=== PATIENT | female | born 1980 | race African-American/Black ===

== ENCOUNTER 2016-11-26 21:23 | Emergency (ER) | payer OTHER ==
[~2016-11-26] VITALS: Ht 171.4 cm; Wt 85.0 kg
[~2016-11-26 21:23] MED LIST: LEVE500S9 PO; PERA2TAB PO; PHEN100C PO
[2016-11-26 21:27] VITALS: Ht 171.4 cm; Wt 85.0 kg
[2016-11-26] MEDS ORDERED: SOD CHLORIDE 0.9% 1,000 ML IV STA (21:31)
[2016-11-26] MEDS ORDERED: LORAZEPAM 2 MG INJ IV STA (21:31)
[2016-11-26] MEDS ORDERED: LEVETIRACETAM 1000 MG (PMX) 100 ML IVPB STA (21:31)
[2016-11-26] MEDS ORDERED: morphine 4 MG/ML VIAL IV STA ×2 (21:38→23:59)
[2016-11-26] MEDS ORDERED: ONDANSETRON 4 MG INJ IV STA (21:38)
--- NOTE | 2016-11-26 21:38 | ERA ---
ER Documentation Chief Complaint Date/Time DATE: 11/26/16 TIME: 21:36 Chief Complaint vicky X3 started at 2108,c/o QUEVEDO, sharp & pressure CP radiating to L arm HPI This is a 36-year-old -[place] female with a known history of seizure disorder currently taking both Keppra and Depakote. The patient indicates that over the past 24 hours she has had 3 tonic-clonic witnessed seizures. The first 1 occurred 10 hours prior to arrival. This lasted for roughly 10 seconds. 2 hours later she had another seizure but did return to her baseline mental status. The second seizure lasted for roughly 5 minutes. Just prior to arrival while the patient was walking her friend stated she had a tonic-clonic seizure that lasted for roughly 10 minutes. The patient states she has a mild headache but did not hit her head or fall is her friend was able to catch her during her seizure activity. She states the headache is a bandlike headache, 6 out of 10 in intensity. Contrary to the triage note the patient is denying any chest pain or pressure that radiates to the neck arm back or jaw. She indicates several days ago she was at [facility] for chest discomfort and discharged home. She indicated a IV was placed in the left antecubital region and she is complaining of mild pain around the IV site but denies any fever shaking or chills. The patient indicates she has been complete with her antiepileptic medication. She has no shortness of breath at rest or exertion peer ROS All systems reviewed and are negative except as per history of present illness. Medications Home Meds Reported Medications Perampanel (Fycompa) 4 Mg Tablet, 4 MG PO HS, TAB 11/26/16 Levetiracetam* (Levetiracetam*) 500 Mg Tablet, 500 MG PO BID, TAB 11/26/16 Phenytoin* Sodium Extended (Dilantin*) 100 Mg Capsule, 100 MG PO FIVE TIMES PER DAY, 0 Refills 04/12/10 Discontinued Reported Medications Perampanel (Fycompa) 2 Mg Tablet, 2 MG PO HS, TAB 07/10/16 Levetiracetam* (Keppra*) 500 Mg/5 Ml Solution, 500 MG PO QAM, BOTTLE 07/10/16 Allergies Allergies: Coded Allergies: No Known Allergies (Verified Allergy, Mild, 07/10/16) PMhx/Soc History of Surgery: Yes (d and c) Anesthesia Reaction: No Hx Neurological Disorder: Yes (pt has hx of seizures) Hx Respiratory Disorders: No Hx Cardiac Disorders: No Hx Psychiatric Problems: No Hx Miscellaneous Medical Probl: No Hx Alcohol Use: No Hx Substance Use: No Hx Tobacco Use: No Physical Exam Vitals Vital Signs Date Time Temp Pulse Resp B/P Pulse Ox O2 Delivery O2 Flow Rate FiO2 11/26/16 21:41 97 15 153/98 100 Room Air 11/26/16 21:27 98.5 97 18 182/109 100 Physical Exam Constitutional:Well-developed. Well-nourished. HEENT:Normocephalic. Atraumatic.Pupils were equal round reactive to light. Moist mucous membranes.No tonsillar exudates. No nasoseptal hematoma. No hemotympanum. Funduscopy exam showed sharp optic disc bilaterally venous pulsations are prepped Neck: No nuchal rigidity. No lymphadenopathy. No posterior cervical spine tenderness or step-offs. Respiratory: Not using accessory muscles of respiration.Lungs were clear to auscultation bilaterally. No rhonchi. No rales. No wheezing. Cardiovascular: Regular rate regular rhythm.No murmurs. No rubs were appreciated.S1, S2 normal. Distal pulses are palpable 2+ bilaterally. Reproducible bilateral chest wall tenderness with no crepitus no ecchymosis no flail chest GI: Abdomen was soft. Nontender. Non Distended. No pulsatile abdominal masses or bruits. No rebound. No guarding. Bowel sounds were present and normal. Muscle skeletal: Full range of motion of both the upper and lower extremities bilaterally.Normal muscle tone.No assymetrical calf tenderness or swelling. Compartments were soft of the bilateral upper extremities Skin: No petechia, no purpura. No lesions on the palms or the soles of the feet. No maculopapular rash. Neurasthenia redness tenderness or swelling of the left antecubital region. NEURO: Patient was alert, awake, orientated x3.No facial droop. Gait observed and normal with no ataxia.Speech had regular rate and rhythm. No focal neurological deficits. Patient was not postictal Results 24 hrs Current Medications Medications (Trade) Dose Ordered Sig/Daryl Route PRN Reason Start Time Stop Time Status Last Admin Dose Admin Sodium Chloride (NS) 1,000 ml @ 1,000 mls/hr Q1H STAT IV 11/26/16 21:31 11/26/16 22:30 Lorazepam 1 mg 1 mg ONCE STAT IV 11/26/16 21:31 11/26/16 21:34 DC Levetiracetam (Keppra 1,000mg/ 100ml (Pmx)) 100 ml @ 400 mls/hr ONCE STAT IVPB 11/26/16 21:31 11/26/16 21:45 DC Morphine Sulfate (morphine) 4 mg ONCE STAT IV 11/26/16 21:38 11/26/16 21:40 DC Ondansetron HCl (Zofran Inj) 4 mg ONCE STAT IV 11/26/16 21:38 11/26/16 21:40 DC Procedures/MDM This patient presented to the emergency department with physical exam findings suggestive of a breakthrough seizure. The patient had seizure precautions maintained while in the emergency department was placed on ekg monitor continuous pulse oximetry and IV access was established by nursing staff. There is no electrolyte abnormalities. I did obtain a CT scan of the head which showed no acute intracerebral hemorrhage mass-effect or midline shift. The patient received intravenous Keppra and Dilantin in the emergency department. Her Dilantin level was subtherapeutic. 12 Lead EKG tracing ordered and reviewed by myself showed: Normal sinus rhythm of 88 bpm and no arrhythmia. MI interval normal. QRS duration normal. No ST segment elevation No ST segment depression. No changes consistent with acute ischemia. The patient presented to the emergency department complaining of chest pain occurred several days prior to arrival had also been evaluated at [facility]. My clinical evaluation and workup was to distinguish minor causes of chest pain from acute life threatening cardiopulmonary causes such as myocardial infarction, pulmonary embolism, aortic dissection, esophageal rupture , cardiac tamponade, The patients chest pain was reproduced by palpation and horizontal flexion of the arms. It was my clinical impression that the pain was a result of inflammation of the skin and subcutaneous structures of the chest wall versus myocardial ischemia. I felt the patient had low-risk chest pain and could therefore be safely discharged with close follow-up. Patient did receive intravenous morphine and Zofran for analgesic control. Departure Diagnosis: Primary Impression: Seizure disorder Condition: HAJA Lomeli Nov 26, 2016 21:38
[2016-11-26] MEDS ORDERED: LEVE500T8 PO (22:07)
[2016-11-26] MEDS ORDERED: PERA4TAB PO (22:08)
[2016-11-26 22:11] LABS: ADD SCAN DIFF NO
[2016-11-26 22:14] LABS: ABNORMAL IP MESSAGE 1; BASOPHILS % 0.4 % (0.0-2.0); EOSINOPHILS # 0.1 10^3/ul (0.0-0.5); EOSINOPHILS % 1.4 % (0.0-7.0); HEMATOCRIT 30.5 % (37.0-47.0); HEMOGLOBIN 8.8 g/dl (12.0-16.0); LYMPHOCYTES # 1.6 10^3/ul (0.8-2.9); LYMPHOCYTES % 22.5 % (15.0-51.0); MEAN CORPUSCULAR HEMOGLOBIN 19.5 pg (29.0-33.0); MEAN CORPUSCULAR HGB CONC 28.9 g/dl (32.0-37.0); MEAN CORPUSCULAR VOLUME 67.6 fl (82.0-101.0); MONOCYTE # 0.8 10^3/ul (0.3-0.9); MONOCYTES % 11.7 % (0.0-11.0); NEUTROPHIL # 4.5 10^3/ul (1.6-7.5); NEUTROPHILS % 63.6 % (39.0-77.0); PLATELET COUNT 271 10^3/UL (140-415); RED BLOOD COUNT 4.51 10^6/ul (4.20-5.40); RED CELL DISTRIBUTION WIDTH 20.7 % (11.5-14.5); WHITE BLOOD COUNT 7.2 10^3/ul (4.8-10.8)
[2016-11-26 22:26] LABS: INR 1.11; PROTIME 14.3 Sec (12.2-14.2); PT RATIO 1.1
[2016-11-26 22:27] LABS: PARTIAL THROMBOPLASTIN TIME 24.3 Sec (25.0-35.0)
[2016-11-26 22:34] LABS: ALBUMIN 4.3 g/dl (3.3-4.9); CHLORIDE 105 mmol/L (97-110)
[2016-11-26 22:35] LABS: POTASSIUM 3.9 mmol/L (3.5-5.1); SODIUM 141 mmol/L (135-144)
[2016-11-26 22:37] LABS: ALBUMIN/GLOBULIN RATIO 1.07; ALKALINE PHOSPHATASE 117 IU/L (42-121); ANION GAP 15 (8-16); ASPARTATE AMINO TRANSFERASE 39 IU/L (15-46); CARBON DIOXIDE 25 mmol/L (21-31); CREATININE 0.61 mg/dl (0.44-1.00); TOTAL PROTEIN 8.3 g/dl (6.1-8.1)
[2016-11-26 22:38] LABS: ALANINE AMINOTRANSFERASE 50 IU/L (13-69); BLOOD UREA NITROGEN 7 mg/dl (7-20); CALCIUM 9.1 mg/dl (8.4-10.2); GLUCOSE 99 mg/dl (70-220)
[2016-11-26 22:39] LABS: ETHANOL < 10.0 mg/dl
--- NOTE | 2016-11-26 22:51 | RADRPT ---
PROCEDURE: CT brain without contrast CLINICAL INDICATION: Headaches after seizure and fall TECHNIQUE: A CT of the brain was performed utilizing axial sections from the skull base through th e vertex without contrast. Sagittal and coronal images were also reformatted. The exam CTDIvol = 69. 20 mGy and DLP = 768.60 mGy-cm. COMPARISON: CT 03/03/2014 FINDINGS: No acute intracranial hemorrhage is identified. There is no mass effect or midline shift. No extra -axial fluid collection is seen. The ventricles and sulci are within normal limits for size and con figuration. The density of the brain is within normal limits. Kelly-white differentiation is preser asif. The osseous structures are unremarkable. The mastoid air cells and visualized paranasal sinuses are clear. RPTAT:HJJR IMPRESSION: Unremarkable noncontrast CT of the brain. Physician Helen Date Time Electronically viewed and signed by Physician Helen on 11/26/2016 22:50 /
[2016-11-26 23:00] LABS: TROPONIN-I < 0.012 ng/ml (0.00-0.12)
[2016-11-26 23:10] LABS: BARBITURATES Negative (NEGATIVE); BENZODIAZEPINES Negative (NEGATIVE); CANNABINOIDS Negative (NEGATIVE); COCAINE Negative (NEGATIVE); OPIATES Negative (NEGATIVE)
[2016-11-26 23:36] LABS: ADD UMIC NO; URINE BILIRUBIN (Dip) NEGATIVE (NEGATIVE); URINE BLOOD (Dip) NEGATIVE (NEGATIVE); URINE COLOR LT. YELLOW (YELLOW); URINE GLUCOSE (Dip) NEGATIVE (NEGATIVE); URINE KETONES (Dip) NEGATIVE (NEGATIVE); URINE LEUKOCYTE ESTERASE (Dip) NEGATIVE (NEGATIVE); URINE NITRITE (Dip) NEGATIVE (NEGATIVE); URINE TOTAL PROTEIN (Dip) NEGATIVE (NEGATIVE); URINE UROBILINOGEN (Dip) 0.2 E.U./dL (0.1-1.0)
[2016-11-27 00:21] VITALS: BP 153/99; PULSE 95; RESP 16; TEMP 98.7
== END 2016-11-27 00:23 | disposition home or self-care (01) ==
LOC: E/R 21:23
DX: G40.909 Epilepsy, unspecified, not intractable, without status epilepticus (principal); R40.2252 Coma scale, best verbal response, oriented, at arrival to emergency department; R51 Headache; R07.9 Chest pain, unspecified; R40.2142 Coma scale, eyes open, spontaneous, at arrival to emergency department; R40.2362 Coma scale, best motor response, obeys commands, at arrival to emergency department
CPT/HCPCS: 70450; 80053; 80185; 80306; 80307; 81003; 84484; 84703; 85025; 85610; 85730; 93005; J1953; J2060; J2270; J2405; J7030; 36415; 96374; 96375; 96376

== ENCOUNTER 2018-11-10 08:43 | Day surgery (SDC) | payer OTHER ==
[~2018-11-10] VITALS: Ht 171.4 cm; Wt 83.7 kg
[~2018-11-10 08:43] MED LIST changes: -LEVE500S9 PO; +LEVE500T8 PO; -PERA2TAB PO; +PERA4TAB PO
[2018-11-10 10:47] VITALS: Ht 171.4 cm; Wt 83.7 kg
[2018-11-10] MEDS ORDERED: FERROUS SULFATE (10:53)
--- NOTE | 2018-11-10 11:18 | PREAC ---
Date/Time of Note Date/Time of Note DATE: 11/10/18 TIME: 11:17 Anesthesia Eval and Record Evaluation Time Pre-Procedure Interview DATE: 11/10/18 TIME: 11:17 Age 38 Sex female NPO: 8 hrs Preoperative diagnosis anemia Planned procedure egd, colonoscopy Past Medical History Past Medical History: Includes Cardio: Dyslipidemia Neuro: Seizure disorder GI: GERD Heme: Anemia Surgery & Anesthesia Issues No known issue Meds Anticoagulation: No Beta Beverly within 24 hr: No Reason Beta Beverly not given: Pt. not on B-Beverly Reported Medications [Ferrous Sulfate] No Conflict Check 11/10/18 Perampanel (Fycompa) 4 Mg Tablet, 4 MG PO HS, TAB 11/26/16 Levetiracetam* (Levetiracetam*) 500 Mg Tablet, 500 MG PO BID, TAB 11/26/16 Phenytoin* Sodium Extended (Dilantin*) 100 Mg Capsule, 100 MG PO FIVE TIMES PER DAY, 0 Refills 04/12/10 Meds reviewed: Yes Allergies Coded Allergies: No Known Allergies (Verified Allergy, Mild, 07/10/16) Allergies Reviewed: Yes Labs/Studies Labs Reviewed: Reviewed by anesthesiologist test: Negative Pre-procedure Exam Airway: Adequate mouth opening, Adequate thyromental dist Mallampati: Mallampati II Teeth: Normal Lung: Normal Heart: Normal ASA Physical Status ASA physical status: 3 Emergency: None Planned Anesthetic General/MAC: Mask, MAC Pre-operative Attestations Prior to commencing anesthesia and surgery, the patient was re-evaluated, there was verification of: *The patient's identity *The results of appropriate recent lab work and preoperative vital signs *The above evaluation not changing prior to induction *Anesthetic plan, risk benefits, alternative and complications discussed with patient/family; questions answered; patient/family understands, accepts and wishes to proceed. BRANDI PASTRANA Nov 10, 2018 11:18
--- NOTE | 2018-11-10 11:20 | HPN ---
Date/Time of Note Date/Time of Note DATE: 11/10/18 TIME: 11:20 Interval H&P Admission Note Pt. seen H&P reviewed: No system changes PASCUAL OSPINA Nov 10, 2018 11:20
[2018-11-10] MEDS ORDERED: PROPOFOL 40 ML ONE (11:29)
[2018-11-10 11:59] VITALS: BP 141/84; PULSE 69; RESP 18
--- NOTE | 2018-11-10 13:36 | PAC ---
Date/Time of Note Date/Time of Note DATE: 11/10/18 TIME: 13:36 Post-Anesthesia Notes Post-Anesthesia Note Last documented vital signs Vital Signs Date Temp Pulse Resp B/P (MAP) Pulse Ox O2 O2 Flow FiO2 Time Delivery Rate 11/10/18 97.2 69 18 141/84 100 Room Air 11:59 (103) Activity: WNL Respiratory function: WNL Cardiovascular function: WNL Mental status: Baseline Pain reasonably controlled: Yes Hydration appropriate: Yes Nausea/Vomiting absent: Yes BRANDI PASTRANA Nov 10, 2018 13:36
== END 2018-11-10 12:30 | disposition home or self-care (01) ==
LOC: GIL 08:43
PROVIDERS: ATTEND Internal Medicine Gastroenterology
DX: K64.8 Other hemorrhoids (principal); K29.50 Unspecified chronic gastritis without bleeding; D12.8 Benign neoplasm of rectum
CPT/HCPCS: 43239; 45380; 88305; 88312; Z7610